=== PATIENT | male | born 1985 | race Caucasian/White ===

== ENCOUNTER 2017-03-20 09:55 | Emergency (ER) | payer OTHER, SELFPAY ==
[2017-03-20] MEDS ORDERED: HYDROcodone/Acetaminophen 10/325 mg Tablet ONE (10:19)
[2017-03-20] MEDS ORDERED: Ibuprofen 800 MG TAB ONE (10:19)
--- NOTE | 2017-03-20 16:51 | RAD ---
CHEST 2 VIEWS: Date: 03/20/17 Comparison is made with the 06/03/12 study. FINDINGS: The heart is normal in size and the lungs are clear. No infiltrate, effusion, or pneumothorax seen. No gross fractures were identified; however, subtle rib fractures might be detected on this series. Dedicated rib films could be helpful if needed. IMPRESSION: No acute thoracic findings. POS: HOME
== END 2017-03-20 11:05 | disposition home or self-care (01) ==
LOC: BURERS 09:55
DX: S20.211A Contusion of right front wall of thorax, initial encounter (principal); S80.819A Abrasion, unspecified lower leg, initial encounter; F17.220 Nicotine dependence, chewing tobacco, uncomplicated; S60.512A Abrasion of left hand, initial encounter; S60.511A Abrasion of right hand, initial encounter; Z79.899 Other long term (current) drug therapy; V27.9XXA Unspecified motorcycle rider injured in collision with fixed or stationary object in traffic accident, initial encounter
CPT/HCPCS: 71020

== ENCOUNTER 2017-08-13 16:44 | Emergency (ER) | payer OTHER, SELFPAY ==
[2017-08-13 17:09] LABS: #Basophils 0.1 thou/uL (0.0-0.2); #Monocytes 0.4 thou/uL (0.11-0.59); #Neutrophils 4.6 thou/uL (1.40-6.50); %Basophils 1.1 % (0.0-1.0); %Eosinophils 0.6 % (0.0-10.0); %Lymphocytes 27.9 % (21.0-51.0); %Monocytes 5.5 % (0.0-10.0); Hemoglobin 16.6 g/dL (14.0-18.0); Mean Corpuscular HGB CONC 33.8 g/dL (32.0-36.0); Mean Corpuscular Hemoglobin 29.6 pg (27.0-31.0); Mean Corpuscular Volume 87.4 fl (80.0-94.0); Mean Platelet Volume 5.7 fL (7.4-10.4); Platelet Count 314 thou/uL (130-400); RBC Distribution Width 11.1 % (11.5-14.5)
[2017-08-13 17:28] LABS: ALT (SGPT) 17 U/L (8-55); AST (SGOT) 15 U/L (5-34); Albumin 4.4 g/dL (3.5-5.0); Alcohol Less than 10 mg/dL (Less than 10); Alkaline Phosphatase 87 U/L (40-150); Anion Gap 16 mmol/L (10-20); BUN (Urea Nitrogen) 12 mg/dL (8.9-20.6); Bilirubin, Total 0.9 mg/dL (0.2-1.2); Calc. Creatinine Clearance 0 mL/min (70-130); Calcium 9.8 mg/dL (7.8-10.44); Carbon Dioxide 24 mmol/L (22-29); Chloride 104 mmol/L (98-107); Estimated GFR-MDRD 87; Globulin 3.7 g/dL (2.4-3.5); Glucose 109 mg/dL (70-105); Potassium 3.1 mmol/L (3.5-5.1); Protein, Total 8.1 g/dL (6.0-8.3); Salicylate Less than 8.0 mg/dL (15.0-30.0); Sodium 141 mmol/L (136-145)
[2017-08-13 17:35] LABS: Acetaminophen Less than 6.0 mcg/mL (10.0-30.0)
[2017-08-13 17:37] LABS: Bilirubin Small (Negative); Blood, Urine Negative (Negative); Clarity Clear (Clear); Glucose, Urine (Dipstick) Negative (Negative); Leukocyte Negative (Negative); Nitrite Negative (Negative); Specific Gravity, Urine 1.025 (1.005-1.030)
[2017-08-13 17:39] LABS: Protein, Urine (Dipstick) Negative (Neg-Trace)
[2017-08-13 17:48] LABS: Amphetamine Detected (NotDetected); Barbiturates Screen Not Detected (NotDetected); Benzodiazepine Screen Not Detected (NotDetected); Cocaine Metabolite Screen Not Detected (NotDetected); Medtox Control Line Valid? VALID (VALID); Methadone Not Detected (NotDetected); Methamphetamine Detected (NotDetected); Opiate Screen Not Detected (NotDetected); Oxycodone Screen Not Detected (NotDetected); Phencyclidine (PCP) Not Detected (NotDetected); THC/Cannabinoid Screen Not Detected (NotDetected); Tricyclic Screen Not Detected (NotDetected)
[2017-08-13] MEDS ORDERED: Ondansetron HCl/PF 4 MG/2 ML Vial ONE (18:00)
== END 2017-08-13 18:30 | disposition short-term general hospital (02) ==
LOC: BURERS 16:44
DX: T43.222A Poisoning by selective serotonin reuptake inhibitors, intentional self-harm, initial encounter (principal); F32.9 Major depressive disorder, single episode, unspecified; F17.220 Nicotine dependence, chewing tobacco, uncomplicated; Z79.899 Other long term (current) drug therapy
CPT/HCPCS: 80053; 80306; 80307; 81003; 84443; 85025; 93005; 94760; 96361; 96374; J2405